=== PATIENT | male | born 1970 | race Caucasian/White ===

== ENCOUNTER 2021-10-23 23:43 | Emergency (ER) | payer OTHER ==
[2021-10-24 00:01] VITALS: TEMP 98.2; BMI 24.3
[2021-10-24] MEDS ORDERED: LIDOCAINE 1%/EPI 1:100000 (20 ML MULTI DOSE VIAL) ONE (00:02)
[2021-10-24] MEDS ORDERED: SODIUM CHLORIDE 0.9% 1000 ML INFUS.BAG IV ONE (00:15)
[2021-10-24] MEDS ORDERED: BACITRACIN 0.9 GM PACKET ONE (00:29)
[2021-10-24] MEDS ORDERED: DIPHTH,PERTUSS(ACELL),TET 0.5 ML DISP.SYRIN IM ONE (00:30)
[2021-10-24 01:57] LABS: BASO % 0.2 % (0-2.0); EOS % 0.9 % (0-4.5); HEMATOCRIT 45.2 % (35.4-49); HEMOGLOBIN 15.8 GM/dL (11.7-16.9); LYMPH % 10.2 % (8-40); MCH 30.9 pg (25.7-33.7); MEAN CELL VOLUME 88.2 fl (80-96); MEAN PLT VOLUME 8.6 fl (7.5-11.1); MONO % 7.6 % (3.8-10.2); NEUT % 81.1 % (42.8-82.8); PLATELET COUNT 173 10^3/uL (134-434); RBC 5.12 M/mm3 (4.00-5.60); RDW 13.2 % (11.9-15.9); WHITE BLOOD COUNT 8.7 K/mm3 (4.0-10.0)
[2021-10-24] MEDS ORDERED: ZOLPIDEM TARTRATE 5 MG TABLET ONE (02:06)
[2021-10-24] MEDS ORDERED: PIPERACILLIN/TAZOB 3.375 GM 3.375 GM/50 ML BAG IVPB ONE (02:07)
[2021-10-24 02:15] LABS: CALCIUM 8.5 mg/dL (8.5-10.1)
[2021-10-24 02:16] LABS: BLOOD UREA NITROGEN 27.3 mg/dL (7-18)
[2021-10-24 02:19] LABS: CREATININE 1.2 mg/dL (0.55-1.3)
[2021-10-24] MEDS ORDERED: CEFAZOLIN 1 GM in DEXTROSE 5%-WATER - 50 ML IVPB ONE (02:50)
[2021-10-24] MEDS ORDERED: ceFAZolin SODIUM 1 GM VIAL ONE (02:59)
[2021-10-24] MEDS ORDERED: ACETAMINOPHEN 500 MG TABLET (FP) PO ONE (03:52)
[2021-10-24] MEDS ORDERED: ACETAMINOPHEN 325 MG TABLET (FP) ONE (03:58)
[2021-10-24 04:08] VITALS: BP 122/78; PULSE 81
== END 2021-10-24 04:08 | disposition home or self-care (01) ==
LOC: JER 23:43
PROC: 0HQ1XZZ Repair Face Skin, External Approach (ICD-10-PCS; principal; 2021-10-23)
PROC: 3E033GC Introduction of Other Therapeutic Substance into Peripheral Vein, Percutaneous Approach (ICD-10-PCS; 2021-10-23)
DX: R55 Syncope and collapse (principal); S01.81XA Laceration without foreign body of other part of head, initial encounter; W01.198A Fall on same level from slipping, tripping and stumbling with subsequent striking against other object, initial encounter
CPT/HCPCS: 36415; 70450-TC; 72125-TC; 80048; 84484; 85025; 93005; 93010; 99285-25

== ENCOUNTER 2021-11-06 15:25 | Emergency (ER) | payer OTHER ==
[2021-11-06 15:53] VITALS: BP 140/76; PULSE 95; TEMP 98.2; BMI 23.7
== END 2021-11-06 17:24 | disposition home or self-care (01) ==
LOC: JERFT 15:25 → JER 15:25 → JERFT 17:24
DX: S01.81XA Laceration without foreign body of other part of head, initial encounter (principal); Y99.9 Unspecified external cause status; Z48.02 Encounter for removal of sutures
CPT/HCPCS: 99281-25

== ENCOUNTER 2021-12-05 22:58 | Emergency (ER) | payer OTHER ==
[2021-12-05 23:14] VITALS: BP 133/87; PULSE 78; TEMP 98.7; BMI 23.7
== END 2021-12-06 01:43 | disposition home or self-care (01) ==
LOC: JER 22:58 → JERFT 22:58
DX: S01.81XA Laceration without foreign body of other part of head, initial encounter (principal); Y99.9 Unspecified external cause status; Z48.00 Encounter for change or removal of nonsurgical wound dressing
CPT/HCPCS: 99281-25

== ENCOUNTER 2021-12-12 08:27 | Emergency (ER) | payer OTHER ==
[2021-12-12 08:36] VITALS: BP 146/87; PULSE 95; TEMP 97.8; BMI 23.1
[2021-12-12] MEDS ORDERED: SILVER NITRATE 75% APPLIC STCK 1 PKT EACH TP ONE (09:06)
[2021-12-12] MEDS ORDERED: SILVER NITRATE 75% APPLIC STCK 1 PKT EACH ONE ×2 (09:17→09:25)
== END 2021-12-12 09:55 | disposition home or self-care (01) ==
LOC: JER 08:27
DX: T81.30XA Disruption of wound, unspecified, initial encounter (principal)
CPT/HCPCS: 99283-25

== ENCOUNTER 2021-12-15 01:07 | Emergency (ER) | payer OTHER ==
[2021-12-15 01:15] VITALS: BP 136/74; PULSE 85; TEMP 98.4; BMI 23.7
== END 2021-12-15 03:44 | disposition home or self-care (01) ==
LOC: JER 01:07
DX: L98.0 Pyogenic granuloma (principal)
CPT/HCPCS: 99281-25